=== PATIENT | female | born 1980 | race Caucasian/White ===

== ENCOUNTER 2025-06-21 10:18 | Outpatient (CLI) | payer OTHER, SELFPAY ==
--- NOTE | 2025-06-21 06:00 | DI.RAD_ITS ---
Exam(s) XR PAIN CLINIC FLUORO JOINT IN EXAM: XR PAIN CLINIC FLUORO JOINT IN CLINICAL HISTORY: Dx: Bursitis Right Hip. TECHNIQUE: Fluoroscopy was provided for the referring physician for guidance with performing pain clinic injection procedure. COMPARISON: No exams were available for comparison FINDINGS: Please see procedure note for details. Fluoro time: 24.3 seconds RADIATION DOSE DELIVERED: janet Donahue=6.1 mGy
--- NOTE | 2025-06-21 06:00 | DI.RAD_ITS ---
Exam(s) XR PAIN CLINIC FLUORO JOINT IN EXAM: XR PAIN CLINIC FLUORO JOINT IN CLINICAL HISTORY: Dx: Bursitis Left Hip. TECHNIQUE: Fluoroscopy was provided for the referring physician for guidance with performing pain clinic injection procedure. COMPARISON: No exams were available for comparison FINDINGS: Please see procedure note for details. Fluoro time: 6.2 seconds RADIATION DOSE DELIVERED: janet Donahue=11.3 mGy
[2025-06-21 10:07] VITALS: BP 115/68; PULSE 78; RESP 18; TEMP 36.3; O2SAT 99
--- NOTE | 2025-06-21 10:32 | PDOC.PAIN ---
Date of service: 06/21/25 Time of Service: 11:08 Pain Managment Procedure Note Procedure Note Procedure Note: Greater Trochanteric Bursa Injection of Steroid ? Location: Bilateral Greater Trochanteric Bursa ? Pre-procedure Diagnosis: M25.552- Pain in left hip M25.551 Pain in right hip ? Post-procedure Diagnosis:? The same as above ? Sedation: none ? Estimated blood loss:? less than 2 ml ? Surgeon:? Ezekiel Gonzalez MD COMMENT: Trochanteric bursitis by exam ? Procedure Detail:? The procedure and potential risks were explained to the patient and informed written consent was obtained. The patient was escorted to the procedure room and placed in the supine position. Pillows were utilized for proper positioning and comfort.? Time out was performed in the procedure room with nursing staff confirming the patient's identity, procedure to be performed, allergies, and any blood thinning or anti-platelet medications. The skin overlying the left and right lateral hip was prepped with ChloraPrep. Sterile gloves were used, a face mask was worn, and new single dose vials of all medications were used with the top being swabbed with alcohol and given time to dry prior to withdrawal of medication. Under fluoroscopic AP projection, the greater trochanter was visualized.? 1% lidocaine was used to anesthetize the skin. A 22 gauge needle was advanced toward the greater trochanteric bursa. After reaching the greater trochanter,0.5ml Omnipaque injected confirming position.?? A mixture consisting of 4ml of 0.5% bupivacaine and 40mg of methylprednisolone was injected into the bursa. The needle was gently removed. [The procedure was then repeated on the opposite side.]? The patient tolerated the procedure well, and was transported to the recovery area for observation and discharge instructions. Permanent images saved and recorded. PAIN: PRE-PROCEDURE 10 POST-PROCEDURE 010 Plan:? Follow up prn COMMENT: Coding Conscious Sedation used for procedure: No CPT Codes: Fluoroscopic guidance (non spine inj.) - 49078 ([id number] ~G) Inj,Bursa/Tendon Major (not SI); Ischial Bursa *BILATERAL* - [id number] ([id number]~G5) 50 - BILATERAL PROCEDURE Additional Codes: Date of Service (33185) Date of service: 06/21/25 Diagnoses: M25.552- Pain in left hip M25.551 Pain in right hip
[2025-06-21 10:50] VITALS: PULSE 73; O2SAT 97
[2025-06-21 11:00] VITALS: PULSE 71; O2SAT 99
[2025-06-21] MEDS: Bupivacaine 0.5% Pres-Free 10 ML VIAL IJ (11:08)
[2025-06-21] MEDS: methylPREDNISolone ACETATE 40 MG/ML VIAL IJ (11:08)
[2025-06-21] MEDS: Omnipaque 240 MG/ML 50 ML BTL IJ (11:08)
[2025-06-21] MEDS: Nerve Block Tray 1 EACH MC (11:08)
== END 2025-06-21 10:19 | disposition home or self-care (01) ==
LOC: PC 10:18
PROVIDERS: PCP Internal Medicine; Visit Provider Anesthesiology Pain Medicine
DX: M25.551 Pain in right hip (principal); M25.552 Pain in left hip
CPT/HCPCS: 20610; 77002; J0665; J1010; Q9967